=== PATIENT | female | born 1975 | race Caucasian/White ===

== ENCOUNTER 2019-01-22 12:23 | Inpatient (IN) | payer MEDICAID ==
[~2019-01-22] VITALS: Ht 137.2 cm; Wt 68.5 kg
[2019-01-22] MEDS: ACCU-CHEK XX SCH (11:00)
[~2019-01-22 12:23] MED LIST: PREN1TAB13 PO
[2019-01-22 12:53] VITALS: Ht 137.2 cm; Wt 68.5 kg
[2019-01-22 12:54] VITALS: BP 118/59; PULSE 76; RESP 20
[2019-01-22] MEDS ORDERED: OXYTOCIN 30 UNITS/LR 500 ML IV PRN (13:00)
[2019-01-22] MEDS ORDERED: MISOPROSTOL 200 MCG TAB PR PRN (13:00)
[2019-01-22] MEDS ORDERED: OXYCODONE/ASPIRIN (4.88/325) TAB PO PRN (13:00)
[2019-01-22] MEDS ORDERED: BUTORPHANOL 2 MG INJ IV PRN (13:00)
[2019-01-22] MEDS ORDERED: METHYLERGONOVINE 0.2 MG INJ IM PRN (13:00)
[2019-01-22] MEDS ORDERED: IBUPROFEN 600 MG TAB PO PRN (13:00)
[2019-01-22] MEDS ORDERED: CARBOPROST 250 MCG/ML VIAL IM PRN (13:00)
[2019-01-22] MEDS ORDERED: LIDOCAINE 1% (MPF) 30 ML INJ INJ PRN (13:00)
[2019-01-22] MEDS ORDERED: OXYTOCIN 30 UNITS/LR 500 ML IV SCH ×3 (13:00→20:30)
[2019-01-22] MEDS: LACTATED RINGER'S 1,000 ML IV SCH ×2 (15:10→22:15)
[2019-01-22] MEDS ORDERED: GLUCOSE GEL 15 GRAM TUBE BUCCAL PRN (20:00)
[2019-01-22] MEDS ORDERED: GLUCOSE GEL 15 GRAM TUBE PO PRN ×2 (20:00)
[2019-01-22] MEDS ORDERED: DEXTROSE 50% 50 ML SYRINGE IV PRN ×2 (20:00)
[2019-01-22] MEDS ORDERED: GLUCAGON 1 MG INJ IM PRN (20:00)
[2019-01-22] MEDS ORDERED: MINERAL OIL LIGHT 10 ML VIAL TOP ONE (20:30)
[2019-01-22] MEDS ORDERED: ACETAMINOPHEN 500 MG TAB PO PRN (20:30)
[2019-01-22] MEDS ORDERED: INSULIN ASPART [NOVOLOG] 3 ML PEN SC SCH (21:00)
[2019-01-22] MEDS ORDERED: ACCU-CHEK XX SCH (21:00)
[2019-01-22] MEDS: LACTATED RINGER'S 1,000 ML IV PRN ×2 (22:35→23:15)
[2019-01-22] MEDS ORDERED: FENTAnyl 2MCG/ML-ROPIV 0.2% 100 ML ONE (22:38)
[2019-01-23] MEDS: LACTATED RINGER'S 1,000 ML IV SCH ×3 (03:54→20:58)
[2019-01-23] MEDS ORDERED: TRIMETHOBENZAMIDE 100 MG/ML VIAL IM PRN (07:00)
[2019-01-23] MEDS ORDERED: ONDANSETRON 4 MG INJ IV PRN (07:00)
[2019-01-23] MEDS ORDERED: DIPHENHYDRAMINE 50 MG INJ IV PRN (07:00)
[2019-01-23] MEDS ORDERED: NALOXONE (0.4 MG/ML) INJ IV PRN (07:00)
[2019-01-23] MEDS ORDERED: FENTAnyl 2MCG/ML-ROPIV 0.2% 100 ML BAG EPI SCH (07:00)
[2019-01-23] MEDS ORDERED: INSULIN ASPART [NOVOLOG] 3 ML PEN SC SCH (07:35)
[2019-01-23] MEDS ORDERED: DEXTROSE 5%-LR 1,000 ML IV SCH (11:30)
[2019-01-23] MEDS ORDERED: OXYTOCIN 30 UNITS/LR 500 ML IV SCH (14:54)
[2019-01-23] MEDS ORDERED: NACL 0.9% 3 ML SYG IV SCH (15:00)
[2019-01-23] MEDS ORDERED: METHYLERGONOVINE 0.2 MG INJ IM PRN (15:00)
[2019-01-23] MEDS ORDERED: OXYTOCIN 30 UNITS/LR 500 ML IV PRN (15:00)
[2019-01-23] MEDS ORDERED: MISOPROSTOL 200 MCG TAB PR PRN (15:00)
[2019-01-23] MEDS ORDERED: BENZOCAINE 20% 56 ML SPRAY TOP PRN (15:00)
[2019-01-23] MEDS ORDERED: OXYCODONE/ASPIRIN (4.88/325) TAB PO PRN (15:00)
[2019-01-23] MEDS ORDERED: WITCH HAZEL/GLYCERIN PAD PR PRN (15:00)
[2019-01-23] MEDS ORDERED: SENNA/DOCUSATE NA (8.6MG/50MG) TAB PO PRN (15:00)
[2019-01-23] MEDS ORDERED: ZOLPIDEM 5 MG TAB PO PRN (15:00)
[2019-01-23] MEDS ORDERED: CARBOPROST 250 MCG/ML VIAL IM PRN (15:00)
[2019-01-23] MEDS ORDERED: LANOLIN 7 GM TUBE TOP PRN (16:00)
[2019-01-23 16:40] VITALS: BP 107/53; PULSE 65; RESP 20
[2019-01-23] MEDS: IBUPROFEN 600 MG TAB PO SCH (18:54)
[2019-01-23] MEDS: ACCU-CHEK XX SCH ×2 (19:20→20:05)
[2019-01-23] MEDS ORDERED: ACCU-CHEK XX SCH (19:35)
[2019-01-23 20:00] VITALS: BP 103/50; PULSE 69; RESP 18
[2019-01-23] MEDS: SENNA/DOCUSATE NA (8.6MG/50MG) TAB PO SCH (21:33)
[2019-01-24] MEDS: IBUPROFEN 600 MG TAB PO SCH ×4 (00:31→17:19)
[2019-01-24 03:45] VITALS: BP 99/56; PULSE 66; RESP 17
[2019-01-24] MEDS: LACTATED RINGER'S 1,000 ML IV SCH (04:58)
[2019-01-24] MEDS ORDERED: ACCU-CHEK XX SCH (07:30)
[2019-01-24] MEDS: ACCU-CHEK XX SCH ×3 (07:30→13:50)
[2019-01-24 07:40] VITALS: BP 112/53; PULSE 60; RESP 18
[2019-01-24] MEDS: SENNA/DOCUSATE NA (8.6MG/50MG) TAB PO SCH ×2 (09:06→21:00)
[2019-01-24 16:02] VITALS: BP 114/54; PULSE 70; RESP 18
[2019-01-24 20:00] VITALS: BP 115/57; PULSE 71; RESP 17
[2019-01-25] MEDS: IBUPROFEN 600 MG TAB PO SCH ×3 (00:24→12:15)
[2019-01-25 04:00] VITALS: BP 101/54; PULSE 64; RESP 18
[2019-01-25 08:00] VITALS: BP 109/62; PULSE 65; RESP 18
[2019-01-25 08:30] VITALS: BP 109/62; PULSE 65; RESP 20
[2019-01-25] MEDS: ACCU-CHEK XX SCH ×2 (08:30→11:22)
[2019-01-25] MEDS ORDERED: DIPHTH/TET/ACEL PERTUSS (ADULT) 0.5 ML VIAL IM* ONE (09:00)
[2019-01-25] MEDS: SENNA/DOCUSATE NA (8.6MG/50MG) TAB PO SCH (09:38)
== END 2019-01-25 13:25 | disposition home or self-care (01) | DRG 806 ==
LOC: L-D 12:23 → PP1 01-23 16:39
PROVIDERS: ADMIT Obstetrics & Gynecology; ATTEND Obstetrics & Gynecology
PROC: 10E0XZZ Delivery of Products of Conception, External Approach (ICD-10-PCS; principal; 2019-01-23)
PROC: 0UQGXZZ Repair Vagina, External Approach (ICD-10-PCS; 2019-01-23)
DX: O24.429 Gestational diabetes mellitus in childbirth, unspecified control (principal); O41.03X0 Oligohydramnios, third trimester, not applicable or unspecified; O71.4 Obstetric high vaginal laceration alone; O99.02 Anemia complicating childbirth; Z3A.39 39 weeks gestation of pregnancy; Z37.0 Single live birth
CPT/HCPCS: 62322; 76815; 76818; 82947; 82962; 85025; 85610; 85730; 86592; 86850; 86900; 86901; 87340; J1815; J2590; J3010; J7120; J7121